=== PATIENT | female | born 1945 | race Caucasian/White ===

== ENCOUNTER 2023-12-29 18:51 | Emergency (ER) | payer MEDICARE, OTHER ==
[~2023-12-29] VITALS: Ht 167.6 cm; Wt 63.6 kg
[2023-12-29 19:01] VITALS: BP 150/79; PULSE 87; RESP 18; TEMP 98; O2SAT 98
[2023-12-29] MEDS: oxyCODONE/APAP 10/325mg tablet PO ONE (20:52)
== END 2023-12-29 20:56 | disposition home or self-care (01) ==
LOC: ER 18:52
DX: M79.10 Myalgia, unspecified site (principal); Z76.0 Encounter for issue of repeat prescription
CPT/HCPCS: 99281

== ENCOUNTER 2024-04-03 12:24 | Emergency (ER) | payer MEDICARE, OTHER ==
[~2024-04-03] VITALS: Ht 170.2 cm; Wt 66.8 kg
[2024-04-03 12:35] VITALS: BP 129/109; PULSE 82; RESP 16; TEMP 98.1; O2SAT 97
[2024-04-03 13:58] LABS: BILIRUBIN,URINE SMALL (Neg); CLARITY,URINE CLOUDY (Clear); COLOR,URINE YELLOW (Yellow); GLUCOSE, URINE NEGATIVE (Neg); KETONES,URINE NEGATIVE (Neg); LEUKOCYTE ESTERASE ,URINE MODERATE (Neg); NITRITES, URINE POSITIVE (Neg); OCCULT BLOOD,URINE MODERATE (Neg); PROTEIN,URINE 30 mg/dl (Neg); UROBILINOGEN,URINE 0.2 E.U/dL (0.2-1.0)
[2024-04-03 14:26] LABS: UA COLLECTION TYPE CLN CATCH MIDSTREAM
[2024-04-03 14:27] LABS: WBC CLUMPS,URINE MANY /HPF (NEGATIVE)
[2024-04-03 14:28] LABS: BACTERIA,URINE 2+ /HPF (Neg); WBC,URINE TNTC /HPF (0-4)
[2024-04-03 14:32] LABS: SQUAMOUS EPITHELIAL CELL,UR FEW /LPF (FEW)
[2024-04-03] MEDS ORDERED: NITR100C6 PO (14:47)
== END 2024-04-03 14:46 | disposition left against medical advice (07) ==
LOC: ER 12:25
DX: N39.0 Urinary tract infection, site not specified (principal); Z88.2 Allergy status to sulfonamides; Z88.6 Allergy status to analgesic agent; Z79.899 Other long term (current) drug therapy
CPT/HCPCS: 81001; 87077; 87088; 87186; 99283

== ENCOUNTER 2024-12-30 19:26 | Emergency (ER) | payer MEDICARE, OTHER ==
[~2024-12-30] VITALS: Ht 167.6 cm; Wt 56.6 kg
[~2024-12-30 19:26] MED LIST: NITR100C6 PO
[2024-12-30 19:35] VITALS: BP 137/60; PULSE 87; RESP 15; TEMP 98.6; O2SAT 98
[2024-12-30 19:55] LABS: BASOPHILS % (AUTO) 0.7 % (0-1); EOSINOPHILS # (AUTO) 0.1 X10'3 (0-0.9); EOSINOPHILS % (AUTO) 1.8 % (0-6); HEMATOCRIT 35.9 % (35.0-45.0); HEMOGLOBIN 12.7 g/dl (12.0-16.0); LYMPHOCYTES % (AUTO) 39.1 % (21-51); MEAN CORPUSCULAR HEMOGLOBIN 32.7 PG (27.0-31.0); MEAN CORPUSCULAR HGB CONC 35.4 g/dL (33.0-36.5); MEAN CORPUSCULAR VOLUME 92.2 FL (78-98); MEAN PLATELET VOLUME 8.7 FL (7.4-10.4); MONOCYTES # (AUTO) 0.5 X10'3 (0-0.9); MONOCYTES % (AUTO) 10.1 % (2-12); NEUTROPHILS # (AUTO) 2.5 X10'3 (1.8-7.7); NEUTROPHILS % (AUTO) 48.3 % (42-75); PLATELET COUNT 191 X10'3 (140-440); RED BLOOD COUNT 3.89 X10'6 (4.20-5.60); RED CELL DISTRIBUTION WIDTH 13.2 % (11.5-14.5); WHITE BLOOD COUNT 5.2 X10'3 (4.5-11.0)
[2024-12-30 20:19] LABS: ALANINE AMINOTRANSFERASE 16 U/L (12-78); ALBUMIN 3.9 G/DL (3.4-5.0); ALKALINE PHOSPHATASE 81 IU/L (46-116); ANION GAP 6 (8-16); ASPARTATE AMINO TRANSFERASE 20 U/L (10-37); BILIRUBIN,TOTAL 0.4 MG/DL (0.1-1.0); BLOOD UREA NITROGEN 23 MG/DL (7-18); BUN/CREATININE RATIO 27.1 (10.0-20.0); CALCIUM 9.3 MG/DL (8.5-10.1); CHLORIDE 101 MMOL/L (99-107); CREATININE 0.85 MG/DL (0.40-0.90); GLUCOSE 107 MG/DL (70-104); POTASSIUM 4.1 MMOL/L (3.5-5.1); PRO BRAIN NATRIURETIC PEPTIDE 301 PG/ML (0-450); SODIUM 138 MMOL/L (135-145); TOTAL CARBON DIOXIDE 30.6 MMOL/L (24-32); TOTAL PROTEIN 7.8 G/DL (6.4-8.2); eCRCL 47 ML/MIN; eGFR 64 ML/MIN
== END 2024-12-30 22:39 | disposition left against medical advice (07) ==
LOC: ER 19:27
DX: R07.9 Chest pain, unspecified (principal); R11.10 Vomiting, unspecified; Z88.2 Allergy status to sulfonamides; Z88.6 Allergy status to analgesic agent; Z53.21 Procedure and treatment not carried out due to patient leaving prior to being seen by health care provider
CPT/HCPCS: 36415; 71045; 80053; 83880; 84484; 85025; 93005

== ENCOUNTER 2025-02-26 14:45 | Emergency (ER) | payer MEDICARE, OTHER ==
[~2025-02-26] VITALS: Ht 167.6 cm; Wt 72.0 kg
[2025-02-26 14:47] VITALS: BP 184/73; PULSE 80; RESP 16; O2SAT 99
[2025-02-26] MEDS ORDERED: HYDR-3973 PO (15:02)
--- NOTE | 2025-02-26 15:03 | Physician Documentation ---
HPI ~ General Chief Complaint: Medication Request Stated Complaint: MED REQUEST Time Seen by MD: 14:53 History of Present Illness HPI Comments 79-year-old female presents to the ED with a complaint of being out of her pain medication secondary to rheumatoid arthritis. She states she recently moved here in his taking [place] 10/325 daily. States that her pain has increased she t hought she could do without the medication but it was been I am unable to .not establish a primary care at this time Medication Reconciliation Allergies: Coded Allergies: Sulfa (Sulfonamide Antibiotics) (Verified Allergy, Unknown, 12/30/24) aspirin (Verified Allergy, Unknown, 12/30/24) Scheduled Nitrofurantoin Monohyd/M-Cryst (Macrobid 100 mg Capsule), 1 CAP PO Q12H Scheduled PRN Hydrocodone Bit/Acetaminophen (Hydrocodone-Apap 10-325 Tablet), 1 TAB PO QID PRN PRN for pain Past Medical History Past Medical History: *MUSCULOSKELETAL* Past Surgical History: noncontributory Lives In: Home Occupation: retired Physical Exam Physical Exam Vital Signs: Temperature: 98.0, Source: Temporal, Heart Rate: 80, Respiratory Rate: 16, BP: 184/73, Pulse Oximetry: 99, Weight: 72.000 Oxygen Flow Rate: 0 Progress Results/Orders Results/Orders Vital Signs 02/26/25 02/26/25 14:47 15:16 Temp 98.0 98.0 Pulse 80 Resp 16 B/P (MAP) 184/73 Pulse Ox 99 O2 Flow Rate 0 Medical Decision Making Findings This is an unfortunate case of poor planning. We will send patient a short dose of [place] secondary to her previous rheumatoid arthritis diagnosis he will have to establish with a primary care for further prescriptions. Differential Dx:Considerations: Include: Adverse circumstances, Economic, Psychosocial, Medical services unavail., Medication refill, Medication non-compliance, Other Departure Disposition: 01 HOME / SELF CARE / HOMELESS Impression: Primary Impression: General medical exam Condition: Stable Discharge Instructions: Medicine Refill at the Emergency Department Additional Instructions: He will need to follow up and establish with a primary care in order to get further pain medicine for your rheumatoid arthritis. Prescribed a short dose to cover you until then Referrals: NO PRIMARY CARE PROVIDER (PCP) Prescriptions Hydrocodone Bit/Acetaminophen (Hydrocodone-Apap 10-325 Tablet) 10mg/325mg Tablet 1 TAB PO QID PRN PRN for pain for 5 Days, #20 TAB Prov: DENNIS BENAVIDEZ SHADE MATCHER 02/26/25 Education Educated: Patient Educated regarding: diagnosis Signature Scribe Signature: h Attestation: The note accurately reflects work and decisions made by me.Dennis Benavidez - SHADE MATCHER 02/26/25 20:16 DENNIS BENAVIDEZ SHADE MATCHER Feb 26, 2025 15:03
[2025-02-26 15:16] VITALS: TEMP 98
== END 2025-02-26 15:20 | disposition home or self-care (01) ==
LOC: ER 14:45
DX: Z00.8 Encounter for other general examination (principal); M06.9 Rheumatoid arthritis, unspecified; Z88.2 Allergy status to sulfonamides; Z88.6 Allergy status to analgesic agent
CPT/HCPCS: 99283

== ENCOUNTER 2025-03-04 14:59 | Emergency (ER) | payer MEDICARE, OTHER ==
[~2025-03-04] VITALS: Ht 167.6 cm; Wt 70.2 kg
[~2025-03-04 14:59] MED LIST changes: +HYDR-3973 PO
[2025-03-04 15:00] VITALS: BP 147/85; PULSE 96; RESP 16; TEMP 98; O2SAT 98
--- NOTE | 2025-03-04 16:18 | Physician Documentation ---
History of Present Illness ~ Chief Complaint: Pain Stated Complaint: LOWER EXT PAIN Time Seen by MD: 15:15 HPI Patient is seen today with complaints of opiate withdrawal/increased arthritic pain and back pain. Patient states she has been taking Percocet 10/325 mg five tabs day for over 10 years. Patient states she recently moved here from [facility] and has not yet been able to find a primary care provider. Patient denies any chest pain or shortness of breath or abdominal pain or nausea, vomiting, diarrhea. Patient states her last pain pill or opiate pill was taken last night around 8:00 a.m. which is about 20 hours ago now. Patient has no other concern or complaint at this time. She denies any saddle anesthesia or changes in bowel or bladder habits. Medication Reconciliation Allergies: Coded Allergies: Sulfa (Sulfonamide Antibiotics) (Verified Allergy, Unknown, 12/30/24) aspirin (Verified Allergy, Unknown, 12/30/24) Scheduled Nitrofurantoin Monohyd/M-Cryst (Macrobid 100 mg Capsule), 1 CAP PO Q12H Discontinued Medications Hydrocodone Bit/Acetaminophen (Hydrocodone-Apap 10-325 Tablet), 1 TAB PO QID PRN PRN for pain Discontinued Reason: Auto Discontinued Past Medical History Past Medical History: *MUSCULOSKELETAL* Past Surgical History: noncontributory Lives In: Home Occupation: retired Review of Systems Constitutional: Denies: chills, fever, weakness Eyes: Denies: pain, blurred vision ENT: Denies: ear pain, nose pain, throat pain, mouth pain Respiratory: Denies: cough, shortness of breath Cardiovascular: Denies: chest pain, palpitations Gastrointestinal: Denies: abdominal pain, nausea, vomiting Genitourinary: Denies: burning, dysuria Female Genitalia: Denies: vaginal discharge, pelvic pain Neurological: Denies: headache, dizziness Musculoskeletal: Denies: pain, swelling Integumentary: Denies: rash, lesions Allergic/Immunologic: Denies: hives, itching Hematologic/Lymphatic: Denies: no symptoms reported Psychiatric: Denies: depression, anxiety Physical Exam Physical Exam Vital Signs: Temperature: 98.0, Source: Temporal, Heart Rate: 96, Respiratory Rate: 16, BP: 147/85, Pulse Oximetry: 98, Weight: 70.200 Oxygen Flow Rate: 0 Physical Exam General: Awake and Alert, no acute distress. HEENT: Conjunctiva pink, Sclera clear, Mucus Membranes moist. Neck: Supple without masses and tenderness. Resp: Unlabored. Lungs clear to auscultation bilaterally. Heart: Regular Rate and rhythm, normal S1 and S2 without murmur, rub or gallop. Musculoskeletal: Patient on exam does have decreased range of motion of the lumbar spine in all planes of motion. Patient is neurovascularly intact distally. Motor function is intact distally. Extremities: No cyanosis,clubbing or edema. Skin: Warm and Dry. Progress Results/Orders Results/Orders Vital Signs 03/04/25 15:00 Temp 98.0 Pulse 96 Resp 16 B/P (MAP) 147/85 Pulse Ox 98 O2 Flow Rate 0 Medical Decision Making Findings Patient is seen today with complaints of opiate withdrawal/increased arthritic pain and back pain. Patient states she has been taking Percocet 10/325 mg five tabs day for over 10 years. Patient states she recently moved here from [facility] and has not yet been able to find a primary care provider. Patient denies any chest pain or shortness of breath or abdominal pain or nausea, vomiting, diarrhea. Patient states her last pain pill or opiate pill was taken last night around 8:00 a.m. which is about 20 hours ago now. Patient has no other concern or complaint at this time. She denies any saddle anesthesia or changes in bowel or bladder habits. Patient was given prescription of Suboxone 8/2 mg films, one film sublingual twice a day to be taken as instructed. Patient instructed extensively on the use of this medication and to not mix it or take within any close proximity to any other opiate medication. Patient voiced understanding. Patient will return to ED with any worsening, concerning or changing symptoms. Patient will follow up with primary care as soon as possible and establish care with a primary care as soon as possible. I recommended the [facility] on [facility]. Departure Disposition: HOME / SELF CARE / HOMELESS Impression: Primary Impression: Chronic pain Qualified Codes: G89.29 - Other chronic pain Condition: Stable Discharge Instructions: Chronic Pain Management Additional Instructions: Patient was given prescription of Suboxone 8/2 mg films, one film sublingual twice a day to be taken as instructed. Patient instructed extensively on the use of this medication and to not mix it or take within any close proximity to any other opiate medication. Patient voiced understanding. Patient will return to ED with any worsening, concerning or changing symptoms. Patient will follow up with primary care as soon as possible and establish care with a primary care as soon as possible. I recommended the [facility] on [facility]. Prescription of Suboxone was sent to [facility] on [facility]. Referrals: NO PRIMARY CARE PROVIDER (PCP) Prescriptions Buprenorphine Hcl/Naloxone Hcl (Suboxone 8 Mg-2 Mg Sl Film) 8 Mg-2 Mg Film 1 STRIP SL BID for pain for 7 Days, #14 STRIP Prov: STEVE VYAS 03/04/25 Signature Scribe Signature: No scribe Attestation: No scribe STEVE VYAS PAC March 04, 2025 16:17
[2025-03-04] MEDS ORDERED: BUPR1FIL3 SL (16:19)
== END 2025-03-04 16:43 | disposition home or self-care (01) ==
LOC: ER 15:00
DX: G89.29 Other chronic pain (principal); M54.50 Low back pain, unspecified; Z79.899 Other long term (current) drug therapy; Z88.2 Allergy status to sulfonamides; Z88.6 Allergy status to analgesic agent
CPT/HCPCS: 99283

== ENCOUNTER 2025-03-05 11:48 | Emergency (ER) | payer MEDICARE, OTHER ==
[~2025-03-05] VITALS: Ht 167.6 cm; Wt 70.5 kg
[~2025-03-05 11:48] MED LIST changes: +BUPR1FIL3 SL
[2025-03-05 11:50] VITALS: BP 140/74; PULSE 88; RESP 16; O2SAT 98
--- NOTE | 2025-03-05 12:21 | Physician Documentation ---
HPI ~ General Chief Complaint: Medication Refill Stated Complaint: MED REQUEST Time Seen by MD: 12:10 OK to notify your PCP?: Yes Source: patient Mode of Arrival: POV Exam Limitations: no limitations History of Present Illness HPI Comments 79-year-old female who was seen here yesterday and prescribed Suboxone. Patient states that she is not sure why she was prescribed Suboxone other than for her pain. Patient was not forthcoming on the fact that she was on percocet for 10years but recently moved here and was unable to find a provider to prescribe her Percocet so was going into withdrawal. The notes from the emergency room visit yesterday state that the patient was experiencing withdrawal symptoms and this is why patient was started on Suboxone. Patient denies any withdrawal sym ptoms today. She states I am just in pain I do not understand why you can not refill my Percocet. Patient states that she has no appointment with any medical provider to establish care. Patient has not had Percocet now in several days. Patient states that yesterday when she left the emergency room she went to get gas and she states I had a bunch of very large pills in my hand and was unable to use this to get gas I went into the gas station to break up the large bills and when I went back out to my truck the Suboxone in all my papers were gone. Patient reports she can not recall what the name of the gas station was or where this occurred. Patient states she did not file a police report as she did not realize that this was something that she should have done. Medication Reconciliation Allergies: Coded Allergies: Sulfa (Sulfonamide Antibiotics) (Verified Allergy, Unknown, 03/05/25) aspirin (Verified Allergy, Unknown, 03/05/25) Scheduled Buprenorphine Hcl/Naloxone Hcl (Suboxone 8 Mg-2 Mg Sl Film), 1 STRIP SL BID Nitrofurantoin Monohyd/M-Cryst (Macrobid 100 mg Capsule), 1 CAP PO Q12H Discontinued Medications Hydrocodone Bit/Acetaminophen (Hydrocodone-Apap 10-325 Tablet), 1 TAB PO QID PRN PRN for pain Discontinued Reason: Auto Discontinued Past Medical History Past Medical History: *MUSCULOSKELETAL*, Rheumatoid Arthritis Past Surgical History: noncontributory Lives In: Home Occupation: retired Review of Systems All Other Systems at this time: Reviewed and Negative Physical Exam Physical Exam Vital Signs: Temperature: 97.8, Source: Temporal, Heart Rate: 88, Respiratory Rate: 16, BP: 140/74, Pulse Oximetry: 98, Weight: 70.500 Physical Exam General Appearance: Alert, WD/WN. NAD. HEENT: NCAT, PERRL, EOMI. Neck: Supple, trachea midline. Cardiovascular: RRR. No m/r/g. Lungs: CTAB. Breathing unlabored Extremities: Normal inspection. No edema. Skin: Warm/dry, normal color Neurological: Alert and oriented x4, normal gait. Psychiatric: Affect congruent with mood. Progress Results/Orders Results/Orders Vital Signs 03/05/25 03/05/25 11:50 12:33 Temp 97.8 97.8 Pulse 88 Resp 16 B/P (MAP) 140/74 Pulse Ox 98 Medical Decision Making Differential Dx:Considerations: Include: Adverse circumstances, Economic, Psychosocial, Medical services unavail., Medication refill, Medication non- compliance Departure Time of Disposition: 12:20 Disposition: 01 HOME / SELF CARE / HOMELESS Impression: Primary Impression: Chronic pain Qualified Codes: G89.29 - Other chronic pain Additional Impression: Opiate dependence, continuous Condition: Stable Discharge Instructions: Medical Screening Exam Additional Instructions: REFERRAL TO [facility] YOUR SUBOXONE IS AT [facility] ON [address] IF YOU PICKED UP THE SUBOXONE AND STATE IT WAS STOLEN THEN YOU NEED TO FILE A POLICE REPORT Referrals: NO PRIMARY CARE PROVIDER (PCP) Education Educated: Patient Educated regarding: diagnosis, treatment, need for follow up Signature Scribe Signature: x Attestation: KYREE Hurtado March 05, 2025 12:21
[2025-03-05 12:33] VITALS: TEMP 97.8
== END 2025-03-05 12:37 | disposition home or self-care (01) ==
LOC: ER 11:48
DX: F11.20 Opioid dependence, uncomplicated (principal); G89.29 Other chronic pain; Z88.2 Allergy status to sulfonamides; Z88.6 Allergy status to analgesic agent; Z79.899 Other long term (current) drug therapy
CPT/HCPCS: 99281